=== PATIENT | male | born 1985 | race Caucasian/White ===

== ENCOUNTER 2017-06-03 12:54 | Emergency (ER) | payer OTHER ==
[~2017-06-03] VITALS: Ht 177.8 cm; Wt 103.9 kg
[2017-06-03 13:04] VITALS: BP 160/94; Ht 177.8 cm; Wt 103.9 kg
== END 2017-06-03 15:22 | disposition home or self-care (01) ==
LOC: ED 12:54
DX: S52.502A Unspecified fracture of the lower end of left radius, initial encounter for closed fracture (principal); S52.615A Nondisplaced fracture of left ulna styloid process, initial encounter for closed fracture; S39.011A Strain of muscle, fascia and tendon of abdomen, initial encounter; S50.812A Abrasion of left forearm, initial encounter; V20.4XXA Motorcycle driver injured in collision with pedestrian or animal in traffic accident, initial encounter; Y93.55 Activity, bike riding; Y99.8 Other external cause status; Y92.411 Interstate highway as the place of occurrence of the external cause
CPT/HCPCS: Q0092